=== PATIENT | female | born 1985 | race Caucasian/White ===

== ENCOUNTER 2018-04-12 12:11 | Emergency (ER) | payer MEDICAID, OTHER ==
[~2018-04-12] VITALS: Ht 162.6 cm; Wt 77.3 kg
[~2018-04-12 12:11] MED LIST: HYDR-4383 PO; METH-360 PO; PHEN-824 PO
[2018-04-12 12:43] LABS: COLOR,URINE ORANGE (Yellow); UA COLLECTION TYPE CLN CATCH MIDSTREAM
[2018-04-12 12:44] LABS: CLARITY,URINE CLOUDY (Clear)
[2018-04-12 12:46] LABS: URINE HCG NEGATIVE (NEG)
[2018-04-12] MEDS ORDERED: ketorolac tromethamine 15mg/ml inj. IV ONE (12:50)
[2018-04-12 12:55] LABS: BACTERIA,URINE 3+ /HPF (Neg); MUCUS STRANDS MODERATE /LPF (Neg); SQUAMOUS EPITHELIAL CELL,UR MANY /LPF (FEW)
[2018-04-12 12:56] LABS: WBC,URINE 50-100 /HPF (0-4)
[2018-04-12] MEDS ORDERED: ondansetron 4mg rapidly disintigrating tab PO ONE (13:00)
[2018-04-12 13:06] LABS: BASOPHILS % (AUTO) 0.3 % (0-1); EOSINOPHILS # (AUTO) 0.1 X10'3 (0-0.9); EOSINOPHILS % (AUTO) 0.9 % (0-6); HEMATOCRIT 39.8 % (35.0-45.0); HEMOGLOBIN 13.5 g/dl (12.0-16.0); LYMPHOCYTES # (AUTO) 3.3 X10'3 (1.1-4.8); LYMPHOCYTES % (AUTO) 28.8 % (21-51); MEAN CORPUSCULAR HEMOGLOBIN 30.9 PG (27.0-31.0); MEAN PLATELET VOLUME 6.9 FL (7.4-10.4); MONOCYTES # (AUTO) 0.7 X10'3 (0-0.9); MONOCYTES % (AUTO) 5.8 % (2-12); NEUTROPHILS # (AUTO) 7.4 X10'3 (1.8-7.7); NEUTROPHILS % (AUTO) 64.2 % (42-75); PLATELET COUNT 368 X10'3 (140-440); RED BLOOD COUNT 4.37 X10'6 (4.20-5.60); RED CELL DISTRIBUTION WIDTH 13.2 % (11.5-14.5); WHITE BLOOD COUNT 11.5 X10'3 (4.5-11.0)
[2018-04-12 13:14] LABS: ALANINE AMINOTRANSFERASE 33 U/L (12-78); ALBUMIN 3.9 G/DL (3.4-5.0); ALKALINE PHOSPHATASE 52 IU/L (46-116); ANION GAP 12 (8-16); ASPARTATE AMINO TRANSFERASE 25 U/L (10-37); BILIRUBIN,TOTAL 0.4 MG/DL (0.1-1.0); BLOOD UREA NITROGEN 13 MG/DL (7-18); BUN/CREATININE RATIO 18.1 (6.6-38.0); CHLORIDE 103 MMOL/L (99-107); CREATININE 0.72 MG/DL (0.40-0.90); GLUCOSE 88 MG/DL (70-104); LIPASE 100 U/L (73-393); POTASSIUM 3.3 MMOL/L (3.5-5.1); SODIUM 140 MMOL/L (135-145); TOTAL CARBON DIOXIDE 24.8 MMOL/L (24-32); TOTAL PROTEIN 7.7 G/DL (6.4-8.2); eGFR > 90 ML/MIN
[2018-04-12] MEDS ORDERED: CefTRIAXone/D5W-Rocephin 1gm 50 ML IV ONE (15:00)
[2018-04-12] MEDS ORDERED: ONDA4TAB6 PO (15:08)
[2018-04-12] MEDS ORDERED: CEPH-572 PO (15:08)
[2018-04-12 15:10] VITALS: BP 125/85
[2018-04-12] MEDS ORDERED: HYDROcodone/acetaminophen 5mg/325mg tablet PO ONE (15:40)
== END 2018-04-12 16:59 | disposition home or self-care (01) ==
LOC: ER 12:11
DX: N10 Acute pyelonephritis (principal); G43.909 Migraine, unspecified, not intractable, without status migrainosus; F15.90 Other stimulant use, unspecified, uncomplicated; Z90.49 Acquired absence of other specified parts of digestive tract; Z88.8 Allergy status to other drugs, medicaments and biological substances; Z88.1 Allergy status to other antibiotic agents
CPT/HCPCS: 36415; 74176; 80053; 81001; 81025; 83690; 85025; 85610; 87088; 87186; 96365; 96375; 99284; J0696; J1885; 87077

== ENCOUNTER 2018-09-13 16:29 | Emergency (ER) | payer OTHER ==
[~2018-09-13] VITALS: Ht 162.6 cm; Wt 72.7 kg
[~2018-09-13 16:29] MED LIST changes: +ONDA4TAB6 PO
[2018-09-13 16:30] VITALS: BP 149/89
[2018-09-13] MEDS ORDERED: orphenadrine citrate 60mg/2ml inj. IM ONE (17:00)
[2018-09-13] MEDS ORDERED: CYCL-1 PO (17:09)
== END 2018-09-13 17:24 | disposition home or self-care (01) ==
LOC: ER 16:30
DX: S39.012A Strain of muscle, fascia and tendon of lower back, initial encounter (principal); G43.909 Migraine, unspecified, not intractable, without status migrainosus; F41.0 Panic disorder [episodic paroxysmal anxiety]; F15.90 Other stimulant use, unspecified, uncomplicated; Z88.8 Allergy status to other drugs, medicaments and biological substances; Z79.899 Other long term (current) drug therapy; Z90.49 Acquired absence of other specified parts of digestive tract; X58.XXXA Exposure to other specified factors, initial encounter; Y93.89 Activity, other specified; Y92.89 Other specified places as the place of occurrence of the external cause; Y99.8 Other external cause status
CPT/HCPCS: 72100; 96372; 99283; J2360

== ENCOUNTER 2019-09-05 17:57 | Inpatient (IN) | payer MEDICAID, OTHER ==
[~2019-09-05] VITALS: Ht 162.6 cm; Wt 63.6 kg
[~2019-09-05 17:57] MED LIST changes: +CIPR250T4 PO; -HYDR-4383 PO; -METH-360 PO; -ONDA4TAB6 PO; -PHEN-824 PO; +TRAM50TA2 PO
[2019-09-05 18:32] LABS: CLARITY,URINE CLOUDY (Clear); COLOR,URINE YELLOW (Yellow); GLUCOSE, URINE NEGATIVE (Neg); KETONES,URINE NEGATIVE (Neg); LEUKOCYTE ESTERASE ,URINE LARGE (Neg); NITRITES, URINE POSITIVE (Neg); OCCULT BLOOD,URINE MODERATE (Neg); PROTEIN,URINE 30 mg/dl (Neg); UROBILINOGEN,URINE 0.2 E.U/dL (0.2-1.0)
[2019-09-05 18:47] LABS: UA COLLECTION TYPE CLN CATCH MIDSTREAM
--- NOTE | 2019-09-05 18:48 | NUR ---
UA REJECTED FOR CULTURE
[2019-09-05 18:50] LABS: BACTERIA,URINE 4+ /HPF (Neg); MUCUS STRANDS MANY /LPF (Neg); SQUAMOUS EPITHELIAL CELL,UR MANY /LPF (FEW); WBC CLUMPS,URINE FEW /HPF (NEGATIVE); WBC,URINE 50-100 /HPF (0-4)
[2019-09-05 18:59] LABS: BASOPHILS # (AUTO) 0.1 X10'3 (0-0.2); BASOPHILS % (AUTO) 0.3 % (0-1); EOSINOPHILS # (AUTO) 0.1 X10'3 (0-0.9); EOSINOPHILS % (AUTO) 0.5 % (0-6); HEMATOCRIT 42.9 % (35.0-45.0); HEMOGLOBIN 14.5 g/dl (12.0-16.0); LYMPHOCYTES # (AUTO) 2.2 X10'3 (1.1-4.8); LYMPHOCYTES % (AUTO) 12.7 % (21-51); MEAN CORPUSCULAR HEMOGLOBIN 30.6 PG (27.0-31.0); MEAN CORPUSCULAR HGB CONC 33.7 g/dL (33.0-36.5); MEAN CORPUSCULAR VOLUME 90.6 FL (78-98); MEAN PLATELET VOLUME 6.4 FL (7.4-10.4); MONOCYTES # (AUTO) 1.5 X10'3 (0-0.9); MONOCYTES % (AUTO) 8.6 % (2-12); NEUTROPHILS # (AUTO) 13.7 X10'3 (1.8-7.7); NEUTROPHILS % (AUTO) 77.9 % (42-75); PLATELET COUNT 295 X10'3 (140-440); RED BLOOD COUNT 4.73 X10'6 (4.20-5.60); RED CELL DISTRIBUTION WIDTH 13.3 % (11.5-14.5); WHITE BLOOD COUNT 17.6 X10'3 (4.5-11.0)
[2019-09-05] MEDS ORDERED: normal saline 1000ML IV soln IVB ONE (19:10)
[2019-09-05 19:17] LABS: ALANINE AMINOTRANSFERASE 28 U/L (12-78); ALBUMIN 3.4 G/DL (3.4-5.0); ALBUMIN/GLOBULIN RATIO 0.8 (1.1-1.5); ALKALINE PHOSPHATASE 66 IU/L (46-116); ANION GAP 7 (8-16); ASPARTATE AMINO TRANSFERASE 19 U/L (10-37); BILIRUBIN,TOTAL 0.6 MG/DL (0.1-1.0); BLOOD UREA NITROGEN 10 MG/DL (7-18); BUN/CREATININE RATIO 11.9 (6.6-38.0); CALCIUM 9.1 MG/DL (8.5-10.1); CHLORIDE 99 MMOL/L (99-107); CREATININE 0.84 MG/DL (0.40-0.90); GLUCOSE 84 MG/DL (70-104); POTASSIUM 3.4 MMOL/L (3.5-5.1); SODIUM 134 MMOL/L (135-145); TOTAL PROTEIN 7.7 G/DL (6.4-8.2); eGFR 79 ML/MIN
[2019-09-05] MEDS ORDERED: ketorolac trometh. 30mg/ml inj. IV ONE (19:25)
--- NOTE | 2019-09-05 19:25 | NUR ---
spoke with deric bloom due to pt high level of pain and distress. received verbal order for toradol 30mg iv x1 dose now. order placed as received.
--- NOTE | 2019-09-05 19:29 | NUR ---
PT CRYING AND SUPER SENSITIVE WITH THE BLOOD DRAW THAT LAB DID TO THE RIGHT AC AND NOW SUPER SENSITIVE WITH THE TORODOL GOING INTO HER VEIN. UNSURE WHY. IV SITE IS WONDERFUL.
--- NOTE | 2019-09-05 19:50 | NUR ---
PLACED IVF ON A PRESSURE BAG. PT WAS ASLEEP. SHE STARTED TO MOAN SLIGHTLY WHEN SHE HEARD ME. THE LIGHTS ARE OFF.
[2019-09-05] MEDS ORDERED: morphine 2 MG/ML inj. syringe IV PRN ×3 (20:50→22:45)
[2019-09-05] MEDS ORDERED: CefTRIAXone/D5W-Rocephin 1gm 50 ML IV ONE (20:50)
--- NOTE | 2019-09-05 20:56 | NUR ---
PT WANTS FOOD/DRINK PRIOR TO MORPHINE SHE SAID IT MAKES HER SICK TO HER STOMACH SO I GOT HER CRACKERS/JUICE AND A SANDWICH AND A BS CONTAINER OF WATER WITH ICE. SHE IS ON THE PHONE WITH FAMILY NOW TO UPDATE THEM ON HER ADMISSION.
[2019-09-05] MEDS ORDERED: NO HOME MEDS (20:58)
--- NOTE | 2019-09-05 21:24 | NUR ---
ASSISTING RN WITH PT CARE, PT C/O MID BACK PAIN 09/22, MEDICATED PER MD ORDER,
--- NOTE | 2019-09-05 21:35 | NUR ---
I returned the morphine I had pulled but then the pt had wanted juancho Addendum: 09/05/19 at 2136 by TRINITY I returned the morphine that I had pulled/but then the pt wanted food and Roro had given her morphine in between. So I put it away.
--- NOTE | 2019-09-05 22:18 | NUR ---
RELIEVING RN FOR BREAK, PT IS SLEEPING QUIETLY ON GURNEY, RESP EVEN AND UNLABORED,
[2019-09-05] MEDS ORDERED: mag hydrox/Alum hydrox/simeth 30ml oral suspension PO PRN (22:45)
[2019-09-05] MEDS ORDERED: magnesium 4gm in 100ml NS 100 ML IV PRN (22:45)
[2019-09-05] MEDS ORDERED: acetaminophen 325mg tablet PO PRN (22:45)
[2019-09-05] MEDS ORDERED: potassium Cl 20 mEq SR tablet PO PRN (22:45)
[2019-09-05] MEDS ORDERED: potassium CL 10mEq/100ml bag 100 ML IV PRN ×2 (22:45)
[2019-09-05] MEDS ORDERED: magnesium 2GM in 50ml NS 50 ML IV PRN (22:45)
[2019-09-05] MEDS ORDERED: magnesium hydroxide 30ml (MOM) UD suspension PO PRN (22:45)
[2019-09-05] MEDS ORDERED: ondansetron/PF 4mg/2ml inj IV PRN (22:45)
[2019-09-05] MEDS ORDERED: normal saline 1000ml 1,000 ML IV SCH (22:45)
--- NOTE | 2019-09-05 23:50 | NUR ---
Patient in room ED 6. I have received report from Ty RN and had the opportunity to ask questions and assume patient care.
[2019-09-05 23:53] LABS: URINE HCG NEGATIVE (NEG)
[2019-09-05 23:55] VITALS: BP 130/63
[2019-09-06] MEDS: HYDROmorphone inj. 0.5 MG/0.5 ML DISP.SYRIN IV PRN ×2 (00:09→04:37)
[2019-09-06] MEDS: normal saline 1000ml 1,000 ML IV SCH ×4 (00:10→16:49)
[2019-09-06 04:30] VITALS: BP 135/72
[2019-09-06 05:32] LABS: BASOPHILS # (AUTO) 0.1 X10'3 (0-0.2); EOSINOPHILS # (AUTO) 0.1 X10'3 (0-0.9); HEMOGLOBIN 14.1 g/dl (12.0-16.0); LYMPHOCYTES # (AUTO) 2.4 X10'3 (1.1-4.8); MONOCYTES # (AUTO) 1.7 X10'3 (0-0.9)
[2019-09-06 05:34] LABS: ALANINE AMINOTRANSFERASE 30 U/L (12-78); ALBUMIN 2.9 G/DL (3.4-5.0); ALBUMIN/GLOBULIN RATIO 0.7 (1.1-1.5); ALKALINE PHOSPHATASE 66 IU/L (46-116); ANION GAP 7 (8-16); ASPARTATE AMINO TRANSFERASE 17 U/L (10-37); BASOPHILS % (AUTO) 0.4 % (0-1); BILIRUBIN,TOTAL 0.5 MG/DL (0.1-1.0); BLOOD UREA NITROGEN 11 MG/DL (7-18); BUN/CREATININE RATIO 11.6 (6.6-38.0); CALCIUM 8.2 MG/DL (8.5-10.1); CHLORIDE 103 MMOL/L (99-107); CREATININE 0.95 MG/DL (0.40-0.90); EOSINOPHILS % (AUTO) 0.6 % (0-6); GLUCOSE 93 MG/DL (70-104); HEMATOCRIT 42.9 % (35.0-45.0); LYMPHOCYTES % (AUTO) 14.7 % (21-51); MAGNESIUM 1.6 MG/DL (1.5-2.4); MEAN CORPUSCULAR HEMOGLOBIN 29.9 PG (27.0-31.0); MEAN CORPUSCULAR HGB CONC 32.9 g/dL (33.0-36.5); MEAN CORPUSCULAR VOLUME 90.9 FL (78-98); MEAN PLATELET VOLUME 6.7 FL (7.4-10.4); MONOCYTES % (AUTO) 10.4 % (2-12); NEUTROPHILS # (AUTO) 12.1 X10'3 (1.8-7.7); NEUTROPHILS % (AUTO) 73.9 % (42-75); PLATELET COUNT 261 X10'3 (140-440); POTASSIUM 3.4 MMOL/L (3.5-5.1); RED BLOOD COUNT 4.72 X10'6 (4.20-5.60); RED CELL DISTRIBUTION WIDTH 13.1 % (11.5-14.5); SODIUM 137 MMOL/L (135-145); TOTAL CARBON DIOXIDE 27.4 MMOL/L (24-32); TOTAL PROTEIN 7.1 G/DL (6.4-8.2); WHITE BLOOD COUNT 16.3 X10'3 (4.5-11.0); eGFR 68 ML/MIN
[2019-09-06 06:00] VITALS: BP 148/82
--- NOTE | 2019-09-06 06:30 | NUR ---
Problems reprioritized. Patient report given, questions answered & plan of care reviewed with Kurt.& Chucho
--- NOTE | 2019-09-06 06:50 | NUR ---
Patient in room PCU 3028. I have received report from Harleen and had the opportunity to ask questions and assume patient care.
--- NOTE | 2019-09-06 06:52 | NUR ---
Patient in room PCU 3028. I have received report from Emelia HARRISON and had the opportunity to ask questions and assume patient care.
[2019-09-06] MEDS: K and/or MAG REPLACEMENT MC SCH ×2 (07:22→20:00)
[2019-09-06] MEDS: nicotine 21mg patch - 24 hr TD SCH (08:00)
[2019-09-06] MEDS: ciprofloxacin lact 400MG/200ML 200 ML IV SCH ×2 (08:35→19:45)
[2019-09-06] MEDS: HYDROmorphone 1 mg/ml syringe IV PRN ×2 (08:36→16:33)
[2019-09-06] MEDS: potassium Cl 20 mEq SR tablet PO PRN ×3 (08:43→16:46)
--- NOTE | 2019-09-06 09:21 | NUR ---
Malnutrition consult: Pt reports 2-13 lb wt loss with decreased appetite per malnutrition risk screen with RN. Most recent scaled wt hx is 74.4 kg taken 08/06/16, current scaled weight is 63.64 kg (116% IBW). Pt currently on a regular diet, pending documentation of PO intake. Pt with no documented decrease in muscle strength or edema. Pt appears well developed, well nourished per ED report. Pt currently lacks a minimum of two criteria for malnutrition. Pt admit with sepsis secondary to acute pyelonephritis. LBM 09/03. Will continue to follow and monitor need for additional protein pending trends in PO intake. Recommendations: 1) Continue with regular diet 2) Monitor need for ONS/additional protein 3) Bowel care PRN 4) Scaled weights per rx Addendum: 09/06/19 at [address] Amended: Links added.
[2019-09-06 12:46] VITALS: BP 95/50
[2019-09-06] MEDS: HYDROcodone/acetaminophen 10/325mg tab PO PRN ×2 (12:49→19:44)
[2019-09-06 15:00] VITALS: BP 101/55
[2019-09-06] MEDS ORDERED: iohexol 300mg/ml 100ml inj. ONE (16:06)
[2019-09-06 18:00] VITALS: BP 121/68
--- NOTE | 2019-09-06 18:15 | NUR ---
Patient in room PCU 3028. I have received report from KurtRN and DexterRN and had the opportunity to ask questions and assume patient care.
--- NOTE | 2019-09-06 18:23 | NUR ---
Problems reprioritized. Patient report given, questions answered & plan of care reviewed with Imelda.
--- NOTE | 2019-09-06 18:24 | NUR ---
Problems reprioritized. Patient report given, questions answered & plan of care reviewed with Imelda HARRISON.
[2019-09-06] MEDS: lactobacillus rhamnosus 10,000 MMU CELLS/CAPSULE PO SCH (19:44)
[2019-09-06] MEDS: CefTRIAXone/D5W-Rocephin 1gm 50 ML IV SCH (19:45)
[2019-09-06] MEDS: diatr meglu/diatrizoate 30ml oral sol.-(3 dose) bottle PO SCH (20:49)
[2019-09-06 22:00] VITALS: BP 107/52
[2019-09-06] MEDS: diphenhydrAMINE 25mg capsule PO PRN (22:14)
[2019-09-07] MEDS: HYDROcodone/acetaminophen 10/325mg tab PO PRN ×4 (01:49→22:48)
[2019-09-07] MEDS: normal saline 1000ml 1,000 ML IV SCH ×4 (01:49→17:54)
[2019-09-07 02:00] VITALS: BP 124/75
[2019-09-07 05:16] LABS: BASOPHILS % (AUTO) 0.3 % (0-1); EOSINOPHILS # (AUTO) 0.1 X10'3 (0-0.9); EOSINOPHILS % (AUTO) 1.7 % (0-6); HEMOGLOBIN 12.4 g/dl (12.0-16.0); LYMPHOCYTES # (AUTO) 1.7 X10'3 (1.1-4.8); LYMPHOCYTES % (AUTO) 19.8 % (21-51); MEAN CORPUSCULAR HGB CONC 33.5 g/dL (33.0-36.5); MEAN CORPUSCULAR VOLUME 89.6 FL (78-98); MEAN PLATELET VOLUME 6.5 FL (7.4-10.4); MONOCYTES # (AUTO) 0.9 X10'3 (0-0.9); MONOCYTES % (AUTO) 9.9 % (2-12); NEUTROPHILS # (AUTO) 5.9 X10'3 (1.8-7.7); NEUTROPHILS % (AUTO) 68.3 % (42-75); PLATELET COUNT 234 X10'3 (140-440); RED BLOOD COUNT 4.13 X10'6 (4.20-5.60); RED CELL DISTRIBUTION WIDTH 12.8 % (11.5-14.5); WHITE BLOOD COUNT 8.7 X10'3 (4.5-11.0)
[2019-09-07 05:43] LABS: ALANINE AMINOTRANSFERASE 35 U/L (12-78); ALBUMIN 2.3 G/DL (3.4-5.0); ALBUMIN/GLOBULIN RATIO 0.6 (1.1-1.5); ALKALINE PHOSPHATASE 71 IU/L (46-116); ANION GAP 7 (8-16); ASPARTATE AMINO TRANSFERASE 19 U/L (10-37); BILIRUBIN,TOTAL 0.2 MG/DL (0.1-1.0); BLOOD UREA NITROGEN 8 MG/DL (7-18); BUN/CREATININE RATIO 12.1 (6.6-38.0); CALCIUM 8.3 MG/DL (8.5-10.1); CHLORIDE 104 MMOL/L (99-107); CREATININE 0.66 MG/DL (0.40-0.90); GLUCOSE 92 MG/DL (70-104); MAGNESIUM 1.7 MG/DL (1.5-2.4); POTASSIUM 3.8 MMOL/L (3.5-5.1); SODIUM 137 MMOL/L (135-145); TOTAL CARBON DIOXIDE 26.2 MMOL/L (24-32); TOTAL PROTEIN 6.4 G/DL (6.4-8.2); eGFR > 90 ML/MIN
[2019-09-07 06:00] VITALS: BP 111/53
--- NOTE | 2019-09-07 06:38 | NUR ---
Problems reprioritized. Patient report given, questions answered & plan of care reviewed with CHRISTY Hicks.
--- NOTE | 2019-09-07 06:42 | NUR ---
Patient in room PCU 3016. I have received report from Imelda and had the opportunity to ask questions and assume patient care.
[2019-09-07] MEDS: K and/or MAG REPLACEMENT MC SCH ×2 (06:57→19:56)
[2019-09-07] MEDS: diatr meglu/diatrizoate 30ml oral sol.-(3 dose) bottle PO SCH ×2 (07:00→21:00)
--- NOTE | 2019-09-07 07:08 | NUR ---
Kurt 4650 Re: Shira Adrian Pt has gastrografin scheduled this morning but there is no procedures ordered. Do you still want me to give?
[2019-09-07] MEDS: nicotine 21mg patch - 24 hr TD SCH (08:00)
[2019-09-07] MEDS: ciprofloxacin lact 400MG/200ML 200 ML IV SCH ×2 (08:21→20:06)
[2019-09-07] MEDS: lactobacillus rhamnosus 10,000 MMU CELLS/CAPSULE PO SCH ×2 (08:21→20:06)
--- NOTE | 2019-09-07 09:34 | NUR ---
Per MD hold gastrographin
--- NOTE | 2019-09-07 10:20 | NUR ---
Patient in room JUAN 348. I have received report from CHRISTY ROMO FROM PCU and had the opportunity to ask questions and assume patient care.
--- NOTE | 2019-09-07 10:23 | NUR ---
Problems reprioritized. Patient report given, questions answered & plan of care reviewed with Rocio.
[2019-09-07 11:45] VITALS: BP 123/76
[2019-09-07] MEDS ORDERED: acetaminophen 325mg tablet PO PRN (12:00)
[2019-09-07 12:29] LABS: URINE AMPHETAMINE SCREEN POSITIVE (Neg); URINE BARBITUATE SCREEN NEGATIVE (Neg); URINE BENZODIAZEPINES SCREEN NEGATIVE (Neg); URINE CANNABINOID SCREEN NEGATIVE (Neg); URINE COCAINE SCREEN NEGATIVE (Neg); URINE METHADONE SCREEN NEGATIVE (Neg); URINE OPIATE SCREEN POSITIVE (Neg); URINE PHENCYCLIDINE SCREEN NEGATIVE (Neg)
[2019-09-07 18:00] VITALS: BP 130/75
--- NOTE | 2019-09-07 18:15 | NUR ---
Problems reprioritized. Patient report given, questions answered & plan of care reviewed with CHRISTY PUENTE.
--- NOTE | 2019-09-07 18:30 | NUR ---
Patient in room JUAN 348. I have received report from MOHIT HARRISON and had the opportunity to ask questions and assume patient care.
[2019-09-07] MEDS: CefTRIAXone/D5W-Rocephin 1gm 50 ML IV SCH (20:06)
[2019-09-07] MEDS: diphenhydrAMINE 25mg capsule PO PRN (22:44)
--- NOTE | 2019-09-07 23:00 | NUR ---
[place] 10/325 was given two hours early 2247. The frequency was Q6 instead of Q4. The medication was pulled by primary nurse, scanned both patient and medication, turned to give pt med not seeing the warning pt had already taken the medication. Dr. Izquierdo, the hospitalist was notified and advised to monitor the patient. The patient is ALOX4, respirations 18. She is asking for food. I will continue to monitor.
[2019-09-08] VITALS: BP 135/72
[2019-09-08] MEDS: normal saline 1000ml 1,000 ML IV SCH ×3 (00:19→22:56)
[2019-09-08 05:03] LABS: BASOPHILS % (AUTO) 0.4 % (0-1); EOSINOPHILS # (AUTO) 0.1 X10'3 (0-0.9); EOSINOPHILS % (AUTO) 2.3 % (0-6); HEMATOCRIT 35.1 % (35.0-45.0); HEMOGLOBIN 11.8 g/dl (12.0-16.0); LYMPHOCYTES # (AUTO) 1.6 X10'3 (1.1-4.8); LYMPHOCYTES % (AUTO) 27.1 % (21-51); MEAN CORPUSCULAR HEMOGLOBIN 29.9 PG (27.0-31.0); MEAN CORPUSCULAR HGB CONC 33.5 g/dL (33.0-36.5); MEAN CORPUSCULAR VOLUME 89.1 FL (78-98); MEAN PLATELET VOLUME 6.3 FL (7.4-10.4); MONOCYTES # (AUTO) 0.8 X10'3 (0-0.9); MONOCYTES % (AUTO) 13.1 % (2-12); NEUTROPHILS # (AUTO) 3.5 X10'3 (1.8-7.7); NEUTROPHILS % (AUTO) 57.1 % (42-75); PLATELET COUNT 264 X10'3 (140-440); RED BLOOD COUNT 3.94 X10'6 (4.20-5.60); RED CELL DISTRIBUTION WIDTH 12.9 % (11.5-14.5); WHITE BLOOD COUNT 6.1 X10'3 (4.5-11.0)
[2019-09-08 05:20] LABS: ALANINE AMINOTRANSFERASE 31 U/L (12-78); ALBUMIN 2.2 G/DL (3.4-5.0); ALBUMIN/GLOBULIN RATIO 0.5 (1.1-1.5); ALKALINE PHOSPHATASE 58 IU/L (46-116); ANION GAP 5 (8-16); ASPARTATE AMINO TRANSFERASE 17 U/L (10-37); BILIRUBIN,TOTAL 0.1 MG/DL (0.1-1.0); BLOOD UREA NITROGEN 13 MG/DL (7-18); BUN/CREATININE RATIO 18.6 (6.6-38.0); CALCIUM 8.4 MG/DL (8.5-10.1); CHLORIDE 105 MMOL/L (99-107); GLUCOSE 86 MG/DL (70-104); MAGNESIUM 1.7 MG/DL (1.5-2.4); POTASSIUM 3.8 MMOL/L (3.5-5.1); SODIUM 139 MMOL/L (135-145); TOTAL CARBON DIOXIDE 28.9 MMOL/L (24-32); TOTAL PROTEIN 6.8 G/DL (6.4-8.2); eGFR > 90 ML/MIN
--- NOTE | 2019-09-08 06:34 | NUR ---
Patient in room JUAN 348. I have received report from Roxana HARRISON and had the opportunity to ask questions and assume patient care.
--- NOTE | 2019-09-08 06:44 | NUR ---
Problems reprioritized. Patient report given, questions answered & plan of care reviewed with Allie HARRISON.
[2019-09-08 07:00] VITALS: BP 102/68
[2019-09-08] MEDS: K and/or MAG REPLACEMENT MC SCH ×2 (08:00→20:00)
[2019-09-08] MEDS: nicotine 21mg patch - 24 hr TD SCH (08:00)
[2019-09-08] MEDS: lactobacillus rhamnosus 10,000 MMU CELLS/CAPSULE PO SCH ×2 (08:12→19:10)
[2019-09-08] MEDS: HYDROcodone/acetaminophen 10/325mg tab PO PRN ×3 (08:19→21:36)
[2019-09-08] MEDS: ciprofloxacin lact 400MG/200ML 200 ML IV SCH (08:19)
--- NOTE | 2019-09-08 08:49 | NUR ---
paged regarding patient having anxiety. Awaiting call back.
[2019-09-08 11:00] VITALS: BP 124/75
--- NOTE | 2019-09-08 11:10 | NUR ---
PAGER ID: [phone] MESSAGE: RE: Shira Adrian, Rm 348B. Pt down for MRI but did not completed due to pt anxious, agitated and uncooperative. please call. Thank you, Allie [phone]
--- NOTE | 2019-09-08 11:58 | NUR ---
mssg sent to MRI RE: Room 351. Pt now has med ordered for anxiety/agitation. Please call ahead for RN to admin med. Please attempt MRI again per Dr Noel.
[2019-09-08] MEDS ORDERED: LORazepam 2 mg/ml vial IV ONE (12:00)
--- NOTE | 2019-09-08 14:43 | NUR ---
Informed Dr. Noel of pt refusing straight cath for urine sample. stated to try and get clean catch specimen.
--- NOTE | 2019-09-08 18:00 | NUR ---
pt refused clean catch at 1530. Charge Nurse notifed. Attempted again at 1730, pt sleeping. Will notify
--- NOTE | 2019-09-08 18:37 | NUR ---
Problems reprioritized. Patient report given, questions answered & plan of care reviewed with Tay HARRISON. Addendum: 09/08/19 at 1844 by Stephie Guerra RN Advised Tay pt needs Clean Catch U/A collected.
[2019-09-08] MEDS: LORazepam 1 MG tablet PO PRN (19:10)
[2019-09-08] MEDS: CefTRIAXone/D5W-Rocephin 1gm 50 ML IV SCH (19:10)
[2019-09-08 20:00] VITALS: BP 115/73
[2019-09-08] MEDS ORDERED: ciprofloxacin 250mg tablet PO SCH (22:00)
[2019-09-09] VITALS: BP 115/71
[2019-09-09] MEDS: LORazepam 1 MG tablet PO PRN (01:31)
[2019-09-09] MEDS: HYDROcodone/acetaminophen 10/325mg tab PO PRN (04:31)
[2019-09-09 05:12] LABS: BASOPHILS % (AUTO) 0.4 % (0-1); EOSINOPHILS # (AUTO) 0.2 X10'3 (0-0.9); EOSINOPHILS % (AUTO) 2.3 % (0-6); HEMATOCRIT 37.3 % (35.0-45.0); HEMOGLOBIN 12.5 g/dl (12.0-16.0); LYMPHOCYTES # (AUTO) 2.2 X10'3 (1.1-4.8); LYMPHOCYTES % (AUTO) 33.3 % (21-51); MEAN CORPUSCULAR HEMOGLOBIN 29.7 PG (27.0-31.0); MEAN CORPUSCULAR HGB CONC 33.6 g/dL (33.0-36.5); MEAN CORPUSCULAR VOLUME 88.4 FL (78-98); MEAN PLATELET VOLUME 6.3 FL (7.4-10.4); MONOCYTES % (AUTO) 14.7 % (2-12); NEUTROPHILS # (AUTO) 3.3 X10'3 (1.8-7.7); NEUTROPHILS % (AUTO) 49.3 % (42-75); PLATELET COUNT 302 X10'3 (140-440); RED BLOOD COUNT 4.22 X10'6 (4.20-5.60); RED CELL DISTRIBUTION WIDTH 12.8 % (11.5-14.5); WHITE BLOOD COUNT 6.7 X10'3 (4.5-11.0)
[2019-09-09 05:37] LABS: ALANINE AMINOTRANSFERASE 30 U/L (12-78); ALBUMIN 2.5 G/DL (3.4-5.0); ALBUMIN/GLOBULIN RATIO 0.6 (1.1-1.5); ALKALINE PHOSPHATASE 62 IU/L (46-116); ANION GAP 7 (8-16); ASPARTATE AMINO TRANSFERASE 16 U/L (10-37); BILIRUBIN,TOTAL 0.1 MG/DL (0.1-1.0); BLOOD UREA NITROGEN 11 MG/DL (7-18); BUN/CREATININE RATIO 15.5 (6.6-38.0); CALCIUM 8.7 MG/DL (8.5-10.1); CHLORIDE 104 MMOL/L (99-107); CREATININE 0.71 MG/DL (0.40-0.90); GLUCOSE 122 MG/DL (70-104); MAGNESIUM 1.9 MG/DL (1.5-2.4); POTASSIUM 4.1 MMOL/L (3.5-5.1); SODIUM 138 MMOL/L (135-145); TOTAL PROTEIN 6.7 G/DL (6.4-8.2); eGFR > 90 ML/MIN
[2019-09-09 07:17] VITALS: BP 104/57
[2019-09-09] MEDS: K and/or MAG REPLACEMENT MC SCH (08:00)
[2019-09-09] MEDS: nicotine 21mg patch - 24 hr TD SCH (08:00)
[2019-09-09] MEDS: lactobacillus rhamnosus 10,000 MMU CELLS/CAPSULE PO SCH (08:59)
[2019-09-09] MEDS: normal saline 1000ml 1,000 ML IV SCH (09:13)
[2019-09-09 11:00] VITALS: BP 108/62
[2019-09-09] MEDS ORDERED: LACT1CAP26 PO (11:51)
[2019-09-09] MEDS ORDERED: CIPR-230 PO (11:51)
--- NOTE | 2019-09-09 12:30 | NUR ---
Educated patient on discharge instructions. Patient states that she understands she is to see Dr. Miles in her office in 5-7 days. Provided pt with Dr. Miles's phone number, and number of [facility] where I reinforced per Dr. Noel that pt is to set up primary care there. 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 Reinforced with patient if she develops fever, severe flank pain again, N/V or any UTI symptoms to come back to ED.
== END 2019-09-09 12:28 | disposition home or self-care (01) | DRG 720 ==
LOC: ER 17:58 → ED HOLD 22:45 → PCU 3S 23:54 → SUR 3N 09-07 11:00
PROVIDERS: ADMIT Family Medicine; ATTEND Internal Medicine
PROC: BW211ZZ Computerized Tomography (CT Scan) of Abdomen and Pelvis using Low Osmolar Contrast (ICD-10-PCS; principal; 2019-09-06)
DX: A41.9 Sepsis, unspecified organism (principal); E87.6 Hypokalemia; F15.10 Other stimulant abuse, uncomplicated; N10 Acute pyelonephritis; F17.210 Nicotine dependence, cigarettes, uncomplicated; F41.0 Panic disorder [episodic paroxysmal anxiety]; F12.90 Cannabis use, unspecified, uncomplicated; F32.9 Major depressive disorder, single episode, unspecified; G43.909 Migraine, unspecified, not intractable, without status migrainosus; Z91.19 Patient's noncompliance with other medical treatment and regimen; Z88.8 Allergy status to other drugs, medicaments and biological substances; Z71.6 Tobacco abuse counseling; Z71.51 Drug abuse counseling and surveillance of drug abuser
CPT/HCPCS: 36415; 71045; 72146; 72148; 74177; 80053; 80305; 81001; 81025; 83605; 83735; 84145; 85025; 87040; 87081; 87088; 96361; 96365; 96375; 99291; G0378; J0696; J0744; J1170; J1885; J2060; J2270; J7030; Q0163; Q9963; Q9967

== ENCOUNTER 2019-12-25 15:07 | Emergency (ER) | payer MEDICAID ==
[~2019-12-25] VITALS: Ht 162.6 cm; Wt 72.7 kg
[~2019-12-25 15:07] MED LIST changes: -CIPR250T4 PO; +LACT1CAP26 PO; -TRAM50TA2 PO
[2019-12-25 15:24] VITALS: BP 130/91
--- NOTE | 2019-12-25 16:01 | NUR ---
Registration reports that patient has left.
[2019-12-25 16:02] LABS: CLARITY,URINE CLOUDY (Clear); COLOR,URINE YELLOW (Yellow); GLUCOSE, URINE NEGATIVE (Neg); KETONES,URINE TRACE mg/dl (Neg); LEUKOCYTE ESTERASE ,URINE SMALL (Neg); NITRITES, URINE NEGATIVE (Neg); OCCULT BLOOD,URINE TRACE-INTACT (Neg); PH,URINE 5.5 (4.8-8.0); PROTEIN,URINE NEGATIVE (Neg); URINE HCG NEGATIVE (NEG); UROBILINOGEN,URINE 0.2 E.U/dL (0.2-1.0)
[2019-12-25 16:03] LABS: UA COLLECTION TYPE CLN CATCH MIDSTREAM
[2019-12-25 16:13] LABS: MUCUS STRANDS MANY /LPF (Neg)
[2019-12-25 16:14] LABS: SQUAMOUS EPITHELIAL CELL,UR MANY /LPF (FEW); WBC,URINE 30-50 /HPF (0-4)
[2019-12-25 16:15] LABS: BACTERIA,URINE 1+ /HPF (Neg); TRANSITIONAL EPI CELLS,URINE FEW /HPF
[2019-12-25 16:16] LABS: TRICHOMONAS,URINE FEW /HPF (NEGATIVE)
== END 2019-12-25 17:33 | disposition left against medical advice (07) ==
LOC: ER 15:08
DX: R10.84 Generalized abdominal pain (principal); Z53.21 Procedure and treatment not carried out due to patient leaving prior to being seen by health care provider
CPT/HCPCS: 81001; 81025

== ENCOUNTER 2020-03-02 01:51 | Emergency (ER) | payer MEDICAID ==
[~2020-03-02] VITALS: Ht 162.6 cm; Wt 72.7 kg
[2020-03-02 02:45] LABS: URINE HCG NEGATIVE (NEG)
[2020-03-02 02:51] LABS: CLARITY,URINE SLIGHTLY CLOUDY (Clear); COLOR,URINE YELLOW (Yellow); GLUCOSE, URINE NEGATIVE (Neg); KETONES,URINE TRACE mg/dl (Neg); LEUKOCYTE ESTERASE ,URINE MODERATE (Neg); NITRITES, URINE NEGATIVE (Neg); OCCULT BLOOD,URINE SMALL (Neg); PROTEIN,URINE NEGATIVE (Neg); UROBILINOGEN,URINE 0.2 E.U/dL (0.2-1.0)
[2020-03-02 02:58] LABS: UA COLLECTION TYPE OTHER
[2020-03-02 02:59] LABS: BACTERIA,URINE FEW /HPF (Neg); MUCUS STRANDS FEW /LPF (Neg); RBC,URINE 0-2 /HPF (0-2); SQUAMOUS EPITHELIAL CELL,UR FEW /LPF (FEW); WBC,URINE 30-50 /HPF (0-4)
[2020-03-02] MEDS ORDERED: CEFD300C3 PO (03:03)
[2020-03-02] MEDS ORDERED: DOXY100C43 PO (03:03)
[2020-03-02] MEDS ORDERED: CefTRIAXone 1000mg IM Kit (w/lidocaine diluent) IM ONE (03:05)
[2020-03-02 03:19] VITALS: BP 122/84
== END 2020-03-02 03:20 | disposition home or self-care (01) ==
LOC: ER 01:52
DX: N10 Acute pyelonephritis (principal); Z11.3 Encounter for screening for infections with a predominantly sexual mode of transmission; F17.200 Nicotine dependence, unspecified, uncomplicated; F12.90 Cannabis use, unspecified, uncomplicated; F15.90 Other stimulant use, unspecified, uncomplicated; Z86.61 Personal history of infections of the central nervous system; Z72.89 Other problems related to lifestyle; Z90.49 Acquired absence of other specified parts of digestive tract; Z88.8 Allergy status to other drugs, medicaments and biological substances; Z79.2 Long term (current) use of antibiotics; Z79.899 Other long term (current) drug therapy
CPT/HCPCS: 36415; 81001; 81025; 87088; 87491; 87591; 96372; 99283; J0696

== ENCOUNTER 2020-07-13 13:16 | Emergency (ER) | payer MEDICAID ==
[~2020-07-13] VITALS: Ht 160 cm; Wt 73.9 kg
[2020-07-13 13:18] VITALS: BP 138/90
[2020-07-13] MEDS ORDERED: CefTRIAXone 1000mg IM Kit (w/lidocaine diluent) IM ONE ×2 (13:30→13:40)
[2020-07-13] MEDS ORDERED: azithromycin 250mg tablet PO ONE ×2 (13:30→13:40)
[2020-07-13 14:28] LABS: CLARITY,URINE CLOUDY (Clear); COLOR,URINE YELLOW (Yellow); GLUCOSE, URINE NEGATIVE (Neg); KETONES,URINE NEGATIVE (Neg); LEUKOCYTE ESTERASE ,URINE NEGATIVE (Neg); NITRITES, URINE NEGATIVE (Neg); OCCULT BLOOD,URINE NEGATIVE (Neg); PH,URINE 5.5 (4.8-8.0); PROTEIN,URINE NEGATIVE (Neg); UA COLLECTION TYPE CLN CATCH MIDSTREAM; URINE HCG NEGATIVE (NEG); UROBILINOGEN,URINE 0.2 E.U/dL (0.2-1.0)
[2020-07-13 14:46] LABS: BACTERIA,URINE 3+ /HPF (Neg); MUCUS STRANDS MANY /LPF (Neg); RBC,URINE NONE SEEN /HPF (0-2); SQUAMOUS EPITHELIAL CELL,UR MANY /LPF (FEW); WBC,URINE 20-30 /HPF (0-4)
[2020-07-13 14:47] LABS: CAL OXALATE CRYSTALS 3+ /HPF (NEGATIVE)
== END 2020-07-13 14:23 | disposition home or self-care (01) ==
LOC: ER 13:16
DX: Z20.2 Contact with and (suspected) exposure to infections with a predominantly sexual mode of transmission (principal); G43.909 Migraine, unspecified, not intractable, without status migrainosus; F17.200 Nicotine dependence, unspecified, uncomplicated; F12.90 Cannabis use, unspecified, uncomplicated; F15.90 Other stimulant use, unspecified, uncomplicated; Z87.440 Personal history of urinary (tract) infections; Z90.49 Acquired absence of other specified parts of digestive tract; Z72.89 Other problems related to lifestyle; Z88.8 Allergy status to other drugs, medicaments and biological substances; Z79.899 Other long term (current) drug therapy
CPT/HCPCS: 36415; 81001; 81025; 87491; 87591; 96372; 99283; J0696

== ENCOUNTER 2020-08-08 23:10 | Emergency (ER) | payer MEDICAID ==
[~2020-08-08] VITALS: Ht 162.6 cm; Wt 77.3 kg
[2020-08-08 23:24] VITALS: BP 141/93
[2020-08-09 00:17] LABS: URINE HCG NEGATIVE (NEG)
[2020-08-09 00:20] LABS: CLARITY,URINE CLEAR (Clear); COLOR,URINE YELLOW (Yellow); GLUCOSE, URINE NEGATIVE (Neg); KETONES,URINE NEGATIVE (Neg); LEUKOCYTE ESTERASE ,URINE NEGATIVE (Neg); NITRITES, URINE NEGATIVE (Neg); OCCULT BLOOD,URINE MODERATE (Neg); PH,URINE 5.5 (4.8-8.0); PROTEIN,URINE NEGATIVE (Neg); UROBILINOGEN,URINE 0.2 E.U/dL (0.2-1.0)
[2020-08-09 00:25] LABS: UA COLLECTION TYPE CLN CATCH MIDSTREAM
[2020-08-09 00:26] LABS: BACTERIA,URINE NONE SEEN /HPF (Neg); CAL OXALATE CRYSTALS FEW /HPF (NEGATIVE); RBC,URINE 0-2 /HPF (0-2); SQUAMOUS EPITHELIAL CELL,UR FEW /LPF (FEW)
[2020-08-09] MEDS ORDERED: ondansetron 4mg rapidly disintigrating tab PO ONE (01:00)
[2020-08-09] MEDS ORDERED: cephalexin 250mg capsule PO ONE (01:00)
[2020-08-09] MEDS ORDERED: CIPR-202 PO (01:04)
[2020-08-09] MEDS ORDERED: ciprofloxacin 250mg tablet PO ONE (01:05)
== END 2020-08-09 01:37 | disposition home or self-care (01) ==
LOC: ER 23:11
DX: N39.0 Urinary tract infection, site not specified (principal); R11.0 Nausea; R53.83 Other fatigue; M54.5 Low back pain; G43.909 Migraine, unspecified, not intractable, without status migrainosus; F12.90 Cannabis use, unspecified, uncomplicated; F15.90 Other stimulant use, unspecified, uncomplicated; Z87.440 Personal history of urinary (tract) infections; Z90.49 Acquired absence of other specified parts of digestive tract; Z72.89 Other problems related to lifestyle; Z88.8 Allergy status to other drugs, medicaments and biological substances; Z79.2 Long term (current) use of antibiotics; Z79.899 Other long term (current) drug therapy
CPT/HCPCS: 81001; 81025; 87088; 99283

== ENCOUNTER 2021-08-01 07:49 | Emergency (ER) | payer MEDICAID ==
[~2021-08-01] VITALS: Ht 162.6 cm; Wt 71.3 kg
[2021-08-01] MEDS ORDERED: acetaminophen 325mg tablet PO ONE (08:30)
[2021-08-01 09:00] LABS: BASOPHILS % (AUTO) 0.3 % (0-1); EOSINOPHILS # (AUTO) 0.1 X10'3 (0-0.9); EOSINOPHILS % (AUTO) 0.6 % (0-6); HEMATOCRIT 41.8 % (35.0-45.0); HEMOGLOBIN 14.3 g/dl (12.0-16.0); LYMPHOCYTES # (AUTO) 1.9 X10'3 (1.1-4.8); LYMPHOCYTES % (AUTO) 21.1 % (21-51); MEAN CORPUSCULAR HEMOGLOBIN 29.9 PG (27.0-31.0); MEAN CORPUSCULAR HGB CONC 34.3 g/dL (33.0-36.5); MEAN CORPUSCULAR VOLUME 87.4 FL (78-98); MEAN PLATELET VOLUME 6.3 FL (7.4-10.4); MONOCYTES # (AUTO) 0.8 X10'3 (0-0.9); MONOCYTES % (AUTO) 9.1 % (2-12); NEUTROPHILS # (AUTO) 6.1 X10'3 (1.8-7.7); NEUTROPHILS % (AUTO) 68.9 % (42-75); PLATELET COUNT 352 X10'3 (140-440); RED BLOOD COUNT 4.79 X10'6 (4.20-5.60); RED CELL DISTRIBUTION WIDTH 13.4 % (11.5-14.5); WHITE BLOOD COUNT 8.9 X10'3 (4.5-11.0)
[2021-08-01 09:01] LABS: CLARITY,URINE CLOUDY (Clear); COLOR,URINE YELLOW (Yellow); GLUCOSE, URINE NEGATIVE (Neg); KETONES,URINE NEGATIVE (Neg); LEUKOCYTE ESTERASE ,URINE TRACE (Neg); NITRITES, URINE POSITIVE (Neg); OCCULT BLOOD,URINE TRACE-INTACT (Neg); PH,URINE 5.5 (4.8-8.0); PROTEIN,URINE NEGATIVE (Neg); UROBILINOGEN,URINE 0.2 E.U/dL (0.2-1.0)
[2021-08-01 09:09] LABS: UA COLLECTION TYPE CLN CATCH MIDSTREAM
[2021-08-01 09:11] LABS: BACTERIA,URINE 4+ /HPF (Neg); MUCUS STRANDS NONE SEEN /LPF (Neg); RBC,URINE 0-2 /HPF (0-2); SQUAMOUS EPITHELIAL CELL,UR MODERATE /LPF (FEW); WBC CLUMPS,URINE FEW /HPF (NEGATIVE)
[2021-08-01 09:18] LABS: ALANINE AMINOTRANSFERASE 22 U/L (12-78); ALBUMIN 3.5 G/DL (3.4-5.0); ALBUMIN/GLOBULIN RATIO 0.8 (1.1-1.5); ALKALINE PHOSPHATASE 76 IU/L (46-116); ANION GAP 10 (8-16); ASPARTATE AMINO TRANSFERASE 22 U/L (10-37); BILIRUBIN,TOTAL 0.5 MG/DL (0.1-1.0); BLOOD UREA NITROGEN 14 MG/DL (7-18); BUN/CREATININE RATIO 20.9 (6.6-38.0); CALCIUM 8.7 MG/DL (8.5-10.1); CHLORIDE 103 MMOL/L (99-107); CREATININE 0.67 MG/DL (0.40-0.90); GLUCOSE 86 MG/DL (70-104); POTASSIUM 3.8 MMOL/L (3.5-5.1); SODIUM 139 MMOL/L (135-145); TOTAL CARBON DIOXIDE 25.9 MMOL/L (24-32); TOTAL PROTEIN 7.8 G/DL (6.4-8.2); eGFR > 90 ML/MIN
[2021-08-01] MEDS ORDERED: PHEN-824 PO (10:39)
[2021-08-01] MEDS ORDERED: CIPR-259 PO (10:39)
[2021-08-01 11:12] VITALS: BP 119/75
== END 2021-08-01 10:45 | disposition home or self-care (01) ==
LOC: ER 07:50
DX: N10 Acute pyelonephritis (principal); R11.2 Nausea with vomiting, unspecified; F12.90 Cannabis use, unspecified, uncomplicated; F15.90 Other stimulant use, unspecified, uncomplicated; G43.909 Migraine, unspecified, not intractable, without status migrainosus; Z72.89 Other problems related to lifestyle; Z87.440 Personal history of urinary (tract) infections; Z90.49 Acquired absence of other specified parts of digestive tract; Z88.8 Allergy status to other drugs, medicaments and biological substances; Z79.2 Long term (current) use of antibiotics; Z79.899 Other long term (current) drug therapy
CPT/HCPCS: 36415; 71045; 80053; 81001; 83605; 84145; 85025; 87040; 87077; 87088; 87186; 99284

== ENCOUNTER 2022-01-28 17:04 | Emergency (ER) | payer MEDICAID ==
[~2022-01-28] VITALS: Ht 160 cm; Wt 70.5 kg
[~2022-01-28 17:04] MED LIST changes: +PHEN-824 PO
[2022-01-28 20:02] LABS: URINE HCG NEGATIVE (NEG)
[2022-01-28 20:03] LABS: CLARITY,URINE CLOUDY (Clear); COLOR,URINE YELLOW (Yellow); GLUCOSE, URINE NEGATIVE (Neg); KETONES,URINE NEGATIVE (Neg); LEUKOCYTE ESTERASE ,URINE SMALL (Neg); NITRITES, URINE POSITIVE (Neg); OCCULT BLOOD,URINE NEGATIVE (Neg); PROTEIN,URINE NEGATIVE (Neg); UROBILINOGEN,URINE 0.2 E.U/dL (0.2-1.0)
[2022-01-28 20:10] LABS: UA COLLECTION TYPE VOIDED
[2022-01-28 20:11] LABS: BACTERIA,URINE 4+ /HPF (Neg); RBC,URINE 0-2 /HPF (0-2); SQUAMOUS EPITHELIAL CELL,UR MODERATE /LPF (FEW)
[2022-01-28] MEDS ORDERED: normal saline 1000ML IV soln IVB ONE (20:15)
[2022-01-28] MEDS ORDERED: CefTRIAXone 2gm/D5W 50ml BAG 50 ML IV ONE (20:15)
[2022-01-28] MEDS ORDERED: acetaminophen 325mg tablet PO ONE (21:15)
[2022-01-28] MEDS ORDERED: AMOX-580 PO (21:51)
[2022-01-28 22:01] VITALS: BP 124/76
== END 2022-01-28 22:25 | disposition home or self-care (01) ==
LOC: ER 17:05
DX: N39.0 Urinary tract infection, site not specified (principal); G43.909 Migraine, unspecified, not intractable, without status migrainosus; F12.90 Cannabis use, unspecified, uncomplicated; F15.90 Other stimulant use, unspecified, uncomplicated; Z90.49 Acquired absence of other specified parts of digestive tract; Z72.89 Other problems related to lifestyle; Z88.8 Allergy status to other drugs, medicaments and biological substances; Z79.899 Other long term (current) drug therapy
CPT/HCPCS: 36415; 81001; 81025; 87088; 87491; 87591; 96365; 99284; J0696; J7030; 87077; 87186

== ENCOUNTER 2022-07-10 23:43 | Emergency (ER) | payer MEDICAID ==
[~2022-07-10] VITALS: Ht 162.6 cm; Wt 85.0 kg
[2022-07-11 00:29] LABS: CLARITY,URINE SLIGHTLY CLOUDY (Clear); COLOR,URINE YELLOW (Yellow); GLUCOSE, URINE NEGATIVE (Neg); KETONES,URINE NEGATIVE (Neg); LEUKOCYTE ESTERASE ,URINE SMALL (Neg); NITRITES, URINE NEGATIVE (Neg); OCCULT BLOOD,URINE NEGATIVE (Neg); PROTEIN,URINE NEGATIVE (Neg); UROBILINOGEN,URINE 0.2 E.U/dL (0.2-1.0)
[2022-07-11 00:30] LABS: URINE HCG NEGATIVE (NEG)
[2022-07-11 00:41] LABS: UA COLLECTION TYPE CLN CATCH MIDSTREAM
[2022-07-11 01:02] LABS: BACTERIA,URINE 1+ /HPF (Neg); MUCUS STRANDS FEW /LPF (Neg); RBC,URINE 0-2 /HPF (0-2); SQUAMOUS EPITHELIAL CELL,UR MODERATE /LPF (FEW); WBC,URINE 0-4 /HPF (0-4)
[2022-07-11 01:03] LABS: BASOPHILS # (AUTO) 0.1 X10'3 (0-0.2); BASOPHILS % (AUTO) 0.8 % (0-1); EOSINOPHILS # (AUTO) 0.5 X10'3 (0-0.9); EOSINOPHILS % (AUTO) 6.1 % (0-6); HEMATOCRIT 39.1 % (35.0-45.0); HEMOGLOBIN 13.2 g/dl (12.0-16.0); LYMPHOCYTES # (AUTO) 3.7 X10'3 (1.1-4.8); LYMPHOCYTES % (AUTO) 49.9 % (21-51); MEAN CORPUSCULAR HEMOGLOBIN 29.9 PG (27.0-31.0); MEAN CORPUSCULAR HGB CONC 33.8 g/dL (33.0-36.5); MEAN CORPUSCULAR VOLUME 88.5 FL (78-98); MEAN PLATELET VOLUME 6.6 FL (7.4-10.4); MONOCYTES # (AUTO) 0.8 X10'3 (0-0.9); MONOCYTES % (AUTO) 10.4 % (2-12); NEUTROPHILS # (AUTO) 2.4 X10'3 (1.8-7.7); NEUTROPHILS % (AUTO) 32.8 % (42-75); PLATELET COUNT 319 X10'3 (140-440); RED BLOOD COUNT 4.42 X10'6 (4.20-5.60); RED CELL DISTRIBUTION WIDTH 13.4 % (11.5-14.5); WHITE BLOOD COUNT 7.4 X10'3 (4.5-11.0)
[2022-07-11 01:11] LABS: ALANINE AMINOTRANSFERASE 29 U/L (12-78); ALBUMIN 3.5 G/DL (3.4-5.0); ALKALINE PHOSPHATASE 65 IU/L (46-116); ANION GAP 1 (8-16); ASPARTATE AMINO TRANSFERASE 18 U/L (10-37); BILIRUBIN,TOTAL 0.1 MG/DL (0.1-1.0); BLOOD UREA NITROGEN 14 MG/DL (7-18); BUN/CREATININE RATIO 18.7 (10.0-20.0); CALCIUM 8.5 MG/DL (8.5-10.1); CHLORIDE 102 MMOL/L (99-107); CREATININE 0.75 MG/DL (0.40-0.90); GLUCOSE 78 MG/DL (70-104); LIPASE 82 U/L (73-393); POTASSIUM 3.7 MMOL/L (3.5-5.1); SODIUM 137 MMOL/L (135-145); TOTAL CARBON DIOXIDE 33.8 MMOL/L (24-32); TOTAL PROTEIN 7.1 G/DL (6.4-8.2); eGFR 88 ML/MIN
[2022-07-11 04:24] VITALS: BP 150/82
--- NOTE | 2022-07-11 05:05 | NUR ---
PT SLEEPING NO VISUAL DISTRESS SEEN
[2022-07-11] MEDS ORDERED: FAMO20TA8 PO (07:19)
== END 2022-07-11 07:40 | disposition home or self-care (01) ==
LOC: ER 23:43
DX: K29.70 Gastritis, unspecified, without bleeding (principal); R60.0 Localized edema; M54.9 Dorsalgia, unspecified; G43.909 Migraine, unspecified, not intractable, without status migrainosus; F12.90 Cannabis use, unspecified, uncomplicated; F15.20 Other stimulant dependence, uncomplicated; Z88.1 Allergy status to other antibiotic agents; Z88.8 Allergy status to other drugs, medicaments and biological substances; Z90.49 Acquired absence of other specified parts of digestive tract
CPT/HCPCS: 36415; 80053; 81001; 81025; 83690; 85025; 87088; 99283

== ENCOUNTER 2022-12-23 03:55 | Emergency (ER) | payer MEDICAID ==
[~2022-12-23] VITALS: Ht 162.6 cm; Wt 81.8 kg
[~2022-12-23 03:55] MED LIST changes: +FAMO20TA8 PO
[2022-12-23 04:25] VITALS: TEMP 98.3
[2022-12-23 04:54] VITALS: BP 146/98; PULSE 98; RESP 12; O2SAT 97
== END 2022-12-23 04:58 ==
LOC: ER 03:55
DX: I10 Essential (primary) hypertension (principal); G43.909 Migraine, unspecified, not intractable, without status migrainosus; F17.200 Nicotine dependence, unspecified, uncomplicated; F12.90 Cannabis use, unspecified, uncomplicated; F15.90 Other stimulant use, unspecified, uncomplicated; Z88.1 Allergy status to other antibiotic agents; Z88.8 Allergy status to other drugs, medicaments and biological substances; Z79.899 Other long term (current) drug therapy; Z90.49 Acquired absence of other specified parts of digestive tract
CPT/HCPCS: 99283

== ENCOUNTER 2023-03-17 19:52 | Emergency (ER) | payer MEDICAID ==
[~2023-03-17] VITALS: Ht 162.6 cm; Wt 84.1 kg
[2023-03-17 19:59] VITALS: BP 129/76; PULSE 97; RESP 17; TEMP 98; O2SAT 98
[2023-03-17 20:57] LABS: BILIRUBIN,URINE NEGATIVE (Neg); CLARITY,URINE CLOUDY (Clear); COLOR,URINE YELLOW (Yellow); GLUCOSE, URINE NEGATIVE (Neg); KETONES,URINE NEGATIVE (Neg); LEUKOCYTE ESTERASE ,URINE NEGATIVE (Neg); NITRITES, URINE NEGATIVE (Neg); OCCULT BLOOD,URINE NEGATIVE (Neg); PROTEIN,URINE TRACE mg/dl (Neg); UROBILINOGEN,URINE 0.2 E.U/dL (0.2-1.0)
[2023-03-17 21:12] LABS: UA COLLECTION TYPE NON-SPECIFIED
[2023-03-17 21:19] LABS: SQUAMOUS EPITHELIAL CELL,UR MANY /LPF (FEW)
[2023-03-17 21:20] LABS: MUCUS STRANDS MANY /LPF (Neg); RBC,URINE NONE SEEN /HPF (0-2); WBC,URINE 0-4 /HPF (0-4)
[2023-03-17 21:21] LABS: BACTERIA,URINE 2+ /HPF (Neg)
== END 2023-03-17 20:39 | disposition left against medical advice (07) ==
LOC: ER 19:53
DX: R10.9 Unspecified abdominal pain (principal); R11.10 Vomiting, unspecified; Z53.21 Procedure and treatment not carried out due to patient leaving prior to being seen by health care provider
CPT/HCPCS: 81001; 99281

== ENCOUNTER 2024-05-17 21:59 | Emergency (ER) | payer MEDICAID ==
[~2024-05-17] VITALS: Ht 162.6 cm; Wt 81.9 kg
[2024-05-17 22:02] VITALS: BP 128/76; PULSE 103; RESP 16; O2SAT 100
[2024-05-17] MEDS ORDERED: polymyxin B sulf/tmp ophth drops 10ml RIGHTEYE ONE (22:50)
[2024-05-17 22:54] VITALS: TEMP 97.3
[2024-05-17] MEDS ORDERED: erythromycin ophthalmic ointment 1gm tube RIGHTEYE ONE (22:55)
[2024-05-17] MEDS ORDERED: erythromycin ophthalmic ointment 1gm tube ONE (22:58)
== END 2024-05-17 23:02 | disposition home or self-care (01) ==
LOC: ER 22:00
DX: S05.01XA Injury of conjunctiva and corneal abrasion without foreign body, right eye, initial encounter (principal); I10 Essential (primary) hypertension; G43.909 Migraine, unspecified, not intractable, without status migrainosus; F41.0 Panic disorder [episodic paroxysmal anxiety]; F12.90 Cannabis use, unspecified, uncomplicated; F15.90 Other stimulant use, unspecified, uncomplicated; Z90.49 Acquired absence of other specified parts of digestive tract; Z88.8 Allergy status to other drugs, medicaments and biological substances; Z79.899 Other long term (current) drug therapy; X58.XXXA Exposure to other specified factors, initial encounter; Y93.89 Activity, other specified; Y92.89 Other specified places as the place of occurrence of the external cause; Y99.8 Other external cause status
CPT/HCPCS: 99283

== ENCOUNTER 2024-08-10 06:30 | Emergency (ER) | payer MEDICAID ==
[~2024-08-10] VITALS: Ht 170.2 cm; Wt 81.8 kg
[2024-08-10 06:33] VITALS: BP 161/83; PULSE 92; RESP 20; TEMP 97.4; O2SAT 98
== END 2024-08-10 09:29 | disposition left against medical advice (07) ==
LOC: ER 06:31
DX: R50.9 Fever, unspecified (principal); Z88.8 Allergy status to other drugs, medicaments and biological substances; Z53.21 Procedure and treatment not carried out due to patient leaving prior to being seen by health care provider